=== PATIENT | male | born 1975 | race Caucasian/White ===

== ENCOUNTER 2016-07-30 22:26 | Emergency (ER) | payer OTHER, BC ==
[~2016-07-30] VITALS: Ht 177.8 cm; Wt 83.6 kg
[~2016-07-30 22:26] MED LIST: ALPRAZOLAM0.25 M2 PO; AMLODIPINE BES2.5 MG PO; ASPIR-LOW81 MG PO; ASPIRIN EC325 MG PO; ATIVAN0.5 MG PO; ATORVASTATIN CA80 MG PO; AUGMENTIN875 MG PO; BENADRYL25 MG PO; EFFIENT10 MG PO; ENDOCET 5-3251 EACH PO; FLEXERIL10 MG PO; HYDROCODON-ACE1 EAC7 PO; LISINOPRIL2.5 MG PO; LOPRESSOR25 MG PO; METOPROLOL TART50 MG PO; NITROSTAT0.4 MG SL; OMEPRAZOLE40 M1 PO; PANTOPRAZOLE SO40 MG PO; PEPCID20 MG PO; PROTONIX40 MG PO; PROZAC40 MG PO; ULTRAM50 MG PO; ZETIA10 MG PO
[2016-07-30] MEDS ORDERED: NAPROSYN500 MG PO (23:55)
[2016-07-31 00:24] VITALS: BP 132/76
== END 2016-07-31 00:25 | disposition home or self-care (01) ==
LOC: EME 22:26
PROC: 0J9K0ZZ Drainage of Left Hand Subcutaneous Tissue and Fascia, Open Approach (ICD-10-PCS; principal; 2016-07-31)
DX: S67.02XA Crushing injury of left thumb, initial encounter (principal); W23.0XXA Caught, crushed, jammed, or pinched between moving objects, initial encounter; Y93.9 Activity, unspecified; Y99.0 Civilian activity done for income or pay; I25.2 Old myocardial infarction; Z95.5 Presence of coronary angioplasty implant and graft; S60.012A Contusion of left thumb without damage to nail, initial encounter
CPT/HCPCS: 73140; 99281; 99283